=== PATIENT | male | born 1950 | race Caucasian/White ===

== ENCOUNTER 2022-07-09 10:28 | Inpatient (IN) | payer OTHER ==
[~2022-07-09] VITALS: Ht 182.9 cm; Wt 83.9 kg
[2022-07-09] MEDS ORDERED: JANUVIA100 MG PO (10:48)
[2022-07-09] MEDS ORDERED: AMLODIPINE-OLM1 EAC3 (10:49)
[2022-07-09] MEDS ORDERED: GLIPIZIDE XL5 MG (10:49)
[2022-07-09] MEDS ORDERED: METFORMIN HCL1000 M2 (10:49)
[2022-07-09] MEDS ORDERED: LIPITOR40 M1 (10:52)
[2022-07-09] MEDS ORDERED: TENORMIN50 M1 (10:52)
--- NOTE | 2022-07-09 10:56 | NUR ---
SE RECIBE PTE ALERTA Y ORIENTADO EN MAGDALENA GINGER ESFERAS, EL CUAL LLEGA EN AMBULANCIA TRANSFERIDO DE CRUCER PRINCESA ENCANTADA POR DOLOR ABDOMINAL Y ESPALDA EL CUAL LE COMENZO HACE 3 HARRY, JUNTO CON NAUSEA Y VOMITOS. SE PRESENTA A DR RAMIREZ Y SE UBICA EN AREA DE OBSERVACION.
--- NOTE | 2022-07-09 11:55 | NUR ---
SE LE ORIENTA A PACIENTE SOBRE LAS ORDENES MEDICAS, REFIERE ENTEDER LAS MISMAS. SE CANALIZA Y SE LE COLOCA LOS IVF'S, SE LE SMOOTH LAS MUETRAS Y SE LE REALIZA CT Y PLACA MIKE LAS ORDENES MEDICAS.
== END 2022-07-11 21:22 | disposition home or self-care (01) | DRG 999 ==
LOC: ER 10:28 → MEDI 19:49
PROVIDERS: ADMIT Internal Medicine; ATTEND Internal Medicine
PROC: BF37ZZZ Magnetic Resonance Imaging (MRI) of Pancreas (ICD-10-PCS; principal; 2022-07-10)
DX: K85.80 Other acute pancreatitis without necrosis or infection (principal); N17.8 Other acute kidney failure; E11.65 Type 2 diabetes mellitus with hyperglycemia; Z79.4 Long term (current) use of insulin; Z20.822 Contact with and (suspected) exposure to COVID-19